=== PATIENT | male | born 1940 | race Caucasian/White ===

== ENCOUNTER 2022-02-23 06:55 | Day surgery (SDC) | payer OTHER, MEDICARE ==
[2022-02-18 10:55] VITALS: BMI 27.4
[2022-02-23] MEDS ORDERED: CELECOXIB 200 MG CAPSULE PO ONE (07:30)
[2022-02-23] MEDS ORDERED: VANCOMYCIN 1,000 MG VIAL (RESTRICTED TO ID ONLY) ONE (08:19)
[2022-02-23] MEDS ORDERED: ceFAZolin SODIUM 1 GM VIAL ONE (08:19)
[2022-02-23] MEDS ORDERED: BUPIVACAINE HCL/PF 0.5% (5MG/ML) 10 ML VIAL ONE (09:11)
[2022-02-23] MEDS ORDERED: MIDAZOLAM HCL 2 MG/2 ML SINGLE DOSE VIAL ONE (09:11)
[2022-02-23] MEDS ORDERED: BUPIVACAINE LIPOSOME/PF (EXPAREL) 266 MG/20 ML VIAL ONE (09:11)
[2022-02-23] MEDS ORDERED: SODIUM CHLORIDE 0.9% P/F 10 ML VIAL IJ ONE (09:11)
[2022-02-23] MEDS ORDERED: MAG HYDROX/AL HYDROX/SIMETH 30 ML UNIT-DOSE CUP PO PRN (09:23)
[2022-02-23] MEDS ORDERED: ONDANSETRON 4 MG/2 ML VIAL IVPUSH PRN ×2 (09:23→11:39)
[2022-02-23] MEDS ORDERED: LACTATED RINGERS SOLUTION 1,000 ML IV SCH ×2 (09:30→11:45)
[2022-02-23] MEDS ORDERED: CEFAZOLIN 2 GM in DEXTROSE 5%-WATER - 50 ML IVPB ONE (09:30)
[2022-02-23] MEDS ORDERED: SUCCINYLCHOLINE CHLORIDE 200 MG/10 ML SYRINGE ONE (09:35)
[2022-02-23] MEDS ORDERED: PROPOFOL 20 ML ONE (09:35)
[2022-02-23] MEDS ORDERED: PATIENT'S OWN MEDICATION (NON-FORMULARY) (Losartan Potassium [Cozaar] 100 MG Tablet) PO SCH (10:00)
[2022-02-23] MEDS ORDERED: TRANEXAMIC ACID 1000 MG/10 ML VIAL IVPUSH ONE (10:00)
[2022-02-23] MEDS ORDERED: NIFEdipine 10 MG CAPSULE (FP) PO SCH (10:00)
[2022-02-23] MEDS ORDERED: GLYCOPYRROLATE 0.2 MG/1 ML VIAL ONE (11:45)
[2022-02-23] MEDS ORDERED: oxyCODONE HCL 5 MG TABLET PO PRN (11:53)
[2022-02-23] MEDS: ACETAMINOPHEN 500 MG TABLET (FP) PO SCH ×2 (14:17→21:53)
[2022-02-23] MEDS: MULTIVITAMINS (DAILY MVI) TABLET (FP) PO SCH (14:22)
[2022-02-23] MEDS: PANTOPRAZOLE 40 MG TABLET PO SCH (14:22)
[2022-02-23] MEDS: oxyCODONE HCL 5 MG TABLET PO PRN ×3 (15:38→21:50)
[2022-02-23] MEDS ORDERED: DEXTROSE 5%-WATER 100 ML IVPB ONE (17:01)
[2022-02-23] MEDS ORDERED: CEFAZOLIN SODIUM 2 GM VIAL ONE (17:03)
[2022-02-23] MEDS: CEFAZOLIN SODIUM 2 GM in DEXTROSE 5%-WATER 100 ML IVPB SCH (17:43)
[2022-02-23 19:34] VITALS: RESP 18
[2022-02-23] MEDS: SENNOSIDES/DOCUSATE COMBO (SENNA PLUS) TABLET (UD) PO SCH (21:50)
[2022-02-23] MEDS: oxyCODONE HCL 10 MG SUSTAINED ACTING TABLET PO SCH (21:53)
[2022-02-23] MEDS ORDERED: METOPROLOL TARTRATE 25 MG TABLET (FP) PO SCH (22:00)
[2022-02-23] MEDS ORDERED: PATIENT'S OWN MEDICATION (NON-FORMULARY) (Mirabegron [Myrbetriq] 50 MG Tab.Er.24h) PO SCH (22:00)
[2022-02-24] MEDS ORDERED: DEXTROSE 5%-WATER 100 ML IVPB ONE ×2 (00:16→00:54)
[2022-02-24] MEDS ORDERED: CEFAZOLIN SODIUM 2 GM VIAL ONE ×2 (00:16→00:54)
[2022-02-24] MEDS: oxyCODONE HCL 5 MG TABLET PO PRN ×2 (01:53→05:27)
[2022-02-24] MEDS: CEFAZOLIN SODIUM 2 GM in DEXTROSE 5%-WATER 100 ML IVPB SCH (01:53)
[2022-02-24] MEDS: ACETAMINOPHEN 500 MG TABLET (FP) PO SCH ×2 (01:54→07:32)
[2022-02-24 06:38] VITALS: BP 149/55; PULSE 73; TEMP 98.7
[2022-02-24] MEDS ORDERED: ASPIRIN 325 MG TABLET PO SCH (08:00)
[2022-02-24 08:32] LABS: HEMATOCRIT 34.8 % (35.4-49); HEMOGLOBIN 12.3 G/dL (11.7-16.9); MCH 31.5 pg (25.7-33.7); MCHC 35.4 g/dl (32.0-35.9); MEAN PLT VOLUME 9.1 fl (7.5-11.1); PLATELET COUNT 200.9 10^3/uL (134-434); RBC 3.91 10^6/uL (4.00-5.60); RDW 14.1 % (11.9-15.9)
[2022-02-24] MEDS: oxyCODONE HCL 10 MG SUSTAINED ACTING TABLET PO SCH (09:20)
[2022-02-24] MEDS: SENNOSIDES/DOCUSATE COMBO (SENNA PLUS) TABLET (UD) PO SCH (09:21)
[2022-02-24] MEDS: MULTIVITAMINS (DAILY MVI) TABLET (FP) PO SCH (09:22)
[2022-02-24] MEDS: PANTOPRAZOLE 40 MG TABLET PO SCH (09:22)
[2022-02-24] MEDS ORDERED: LOSARTAN POTASSIUM 50 MG TABLET PO SCH (10:00)
== END 2022-02-24 13:09 | disposition home health service (06) ==
LOC: FASU 06:55 → FASUSAT 06:55 → FM/S 13:04 → FASUSAT 02-24 13:09
PROVIDERS: ATTEND Orthopaedic Surgery
PROC: 8E0YXBZ Computer Assisted Procedure of Lower Extremity (ICD-10-PCS; 2022-02-23)
PROC: 8E0Y0CZ Robotic Assisted Procedure of Lower Extremity, Open Approach (ICD-10-PCS; 2022-02-23)
PROC: 0SRD0J9 Replacement of Left Knee Joint with Synthetic Substitute, Cemented, Open Approach (ICD-10-PCS; principal; 2022-02-23 10:00)
DX: M17.12 Unilateral primary osteoarthritis, left knee (principal)
CPT/HCPCS: 20985; 27447; C1776; S2900; 36415; 73560-TC-LT-FY; 85027; 94760; 97010-GP; 97116-GP; 97162-GP